=== PATIENT | female | born 2000 | race American Indian/Alaskan Native ===

== ENCOUNTER 2020-08-26 15:19 | Inpatient (IN) | payer MEDICAID ==
--- NOTE | 2020-08-26 21:44 | Ultrasound Report ---
ULTRASOUND OBSTETRIC LIMITED ULTRASOUND BIOPHYSICAL PROFILE INDICATION / CLINICAL INFORMATION: well being. Clinical Gestational Age (GA): 40.2 weeks.days COMPARISON: None available. FINDINGS: BREATHING MOVEMENT = 2 GROSS BODY MOVEMENT = 2 TONE = 2 QUALITATIVE AMNIOTIC FLUID VOLUME = 2 TOTAL BIOPHYSICAL SCORE = 8/8 HEART RATE (beats per minute): 145 AMNIOTIC FLUID INDEX (cm) = 9.8 (normal = 7-24 cm) PRESENTATION: Cephalic. ADDITIONAL FINDINGS: None. IMPRESSION: 1. Biophysical Score = 8/8 Signer Name: José Hadley MD Signed: 08/26/2020 9:43 PM Workstation Name: [id number]
[2020-08-26] MEDS ORDERED: LIDOCAINE (2%) 20 MG/1 ML VIAL 20 ML MDV INFILTRATI ONE (22:10)
[2020-08-26] MEDS ORDERED: ONDANSETRON 4 MG/2 ML INJ IV PRN (22:10)
[2020-08-26] MEDS ORDERED: AMPICILLIN/NS 2 GM/100 ML 2 GM/100 ML BAG IV ONE (22:10)
[2020-08-26] MEDS ORDERED: MINERAL OIL 30 ML ORAL LIQD PO PRN (22:10)
[2020-08-26] MEDS ORDERED: TERBUTALINE 1 MG/1 ML INJ SUB-Q PRN (22:10)
[2020-08-26] MEDS ORDERED: ePHEDrine SULFATE 50 MG/1 ML INJ IV PRN (22:10)
[2020-08-26] MEDS ORDERED: LACTATED RINGERS 1,000 ML ONE (22:15)
[2020-08-26 22:42] LABS: Hematocrit 37.3 % (30.3-42.9); Hemoglobin 12.7 gm/dl (10.1-14.3); Mean Corpuscular HGB Conc 34 % (30-34); Mean Corpuscular Volume 87 fl (79-97); Platelet Count 331 K/mm3 (140-440); Red Blood Count 4.31 M/mm3 (3.65-5.03); Red Cell Distribution Width 13.6 % (13.2-15.2)
[2020-08-26] MEDS ORDERED: D5W/LACTATED RINGERS 1,000 ML IV SCH (23:00)
[2020-08-26] MEDS ORDERED: OXYTOCIN DRIP 30 UNITS/500 ML BAG IV SCH (23:00)
[2020-08-26] MEDS ORDERED: LACTATED RINGERS 1,000 ML IV SCH (23:00)
--- NOTE | 2020-08-26 23:00 | History and Physical Report ---
History of Present Illness Date of examination: 08/26/20 Date of admission: 08/26/2020 Chief complaint: Non-reactive nonstress test History of present illness: Old at 40+2 weeks who was sent to labor and delivery triage secondary to having a nonreactive NST in the office. The patient underwent biophysical profile with a score of 8 out of 8 however the nonstress test in triage continue to demonstrate minimal variability but no evidence of late decelerations. The decision was made to keep the patient for augmentation of labor Past History Past Medical History: asthma Past Surgical History: no surgical history Social history: single - Obstetrical History Expected Date of Delivery: 08/24/20 Actual Gestation: 40 Week(s) 2 Day(s) : 1 Para: 0 Hx # Term Pregnancies: 0 Number of Pregnancies: 0 Spontaneous Abortions: 0 Induced : 0 Number of Living Children: 0 Medications and Allergies Allergies Allergy/AdvReac Type Severity Reaction Status Date / Time No Known Allergies Allergy Unverified 08/26/20 16:22 Active Meds: Active Medications Dinoprostone (Cervidil) 10 mg VG ONCE ONE Stop: 08/26/20 22:11 Ephedrine Sulfate (Ephedrine Sulfate) 10 mg IV Q2M PRN PRN Reason: Hypotension Fentanyl (Sublimaze) 100 mcg IV Q2H PRN PRN Reason: Pain,Severe (7-10) LABOR PAIN Lactated Ringer's (Lactated Ringers) 1,000 mls @ 125 mls/hr IV DIRECT ROEL Oxytocin/Sodium Chloride (Pitocin/Ns 30 Unit/500ml) 30 units in 500 mls @ 40 m ls/hr IV TITR ROEL; Protocol Ampicillin Sodium (Ampicillin/Ns 2 Gm/100 Ml) 2 gm in 100 mls @ 100 mls/hr IV ONCE ONE; Protocol Stop: 08/26/20 23:09 Lidocaine (Xylocaine 2%) 20 ml INFILTRATI ONCE ONE Stop: 08/26/20 22:11 Mineral Oil (Mineral Oil) 30 ml PO QHS PRN PRN Reason: Constipation Ondansetron HCl (Zofran) 4 mg IV Q8H PRN PRN Reason: Nausea And Vomiting Terbutaline Sulfate (Brethine) 0.25 mg SUB-Q ONCE PRN PRN Reason: Hyperstimulation/Hypertonicity Review of Systems All systems: negative Genitourinary: no leakage of fluid - Vital Signs Vital signs: Vital Signs Pulse Pulse Ox 90 98 08/26/20 16:22 08/26/20 16:22 Temp Pulse Resp BP Pulse Ox 98.3 F 92 H 20 114/76 100 08/26/20 16:23 08/26/20 21:45 08/26/20 16:23 08/26/20 16:23 08/26/20 21:45 - Physical Exam Breasts: Positive: deferred Cardiovascular: Regular rate Lungs: Positive: Clear to auscultation Abdomen: Positive: normal appearance Results Result Diagrams: 08/26/20 22:25 All other labs normal. Assessment and Plan - Patient Problems (1) Non-reactive NST (non-stress test) Current Visit: Yes Status: Acute Plan to address problem: Admit to labor and delivery for augmentation of labor
[2020-08-27] MEDS ORDERED: LACTATED RINGERS 1,000 ML ONE ×2 (01:24→12:44)
[2020-08-27] MEDS ORDERED: DINOPROSTONE 10 MG VAG SUPP VG ONE (02:15)
[2020-08-27] MEDS: fentaNYL 100 MCG/2 ML INJ IV PRN ×2 (05:33→08:57)
[2020-08-27] MEDS ORDERED: BUTORPHANOL 2 MG/1 ML INJ IV PRN (08:00)
--- NOTE | 2020-08-27 08:41 | Progress Note ---
Assessment and Plan A: 20 yo at 40w3d EGA Non-reassuring testing Maternal status reassuring P: Cook catheter placed, each balloon inflated with 60cc sterile water Pain management as requested Anticipate Subjective - Subjective Date of service: 08/27/20 Principal diagnosis: IUP at term, non-reassuring testing Interval history: Pt is 6 hours into IOL for non-reassuring testing. Cervidil placed at 0238 today, SVE remains 1cm. Pt now reports regular contractions. Patient reports: movement normal, contractions, no loss of fluid, no vaginal bleeding Objective - Vital Signs Vital Signs: Vital Signs - 12hr 08/26/20 08/26/20 08/26/20 20:40 20:45 20:50 Temperature Pulse Rate 83 95 H 93 H Respiratory Rate O2 Sat by Pulse 100 99 100 Oximetry 08/26/20 08/26/20 08/26/20 20:55 21:00 21:05 Temperature Pulse Rate 99 H 88 95 H Respiratory Rate O2 Sat by Pulse 100 100 100 Oximetry 08/26/20 08/26/20 08/26/20 21:10 21:15 21:20 Temperature Pulse Rate 102 H 100 H 96 H Respiratory Rate O2 Sat by Pulse 100 100 100 Oximetry 08/26/20 08/26/20 08/26/20 21:25 21:30 21:35 Temperature Pulse Rate 91 H 102 H 102 H Respiratory Rate O2 Sat by Pulse 100 99 99 Oximetry 08/26/20 08/26/20 08/27/20 21:40 21:45 02:50 Temperature Pulse Rate 95 H 92 H 102 H Respiratory Rate O2 Sat by Pulse 100 100 97 Oximetry 08/27/20 08/27/20 08/27/20 02:55 03:00 03:05 Temperature Pulse Rate 93 H 101 H 102 H Respiratory Rate O2 Sat by Pulse 97 97 97 Oximetry 08/27/20 08/27/20 08/27/20 03:10 03:15 03:20 Temperature Pulse Rate 88 100 H 93 H Respiratory Rate O2 Sat by Pulse 97 97 97 Oximetry 08/27/20 08/27/20 08/27/20 03:25 03:30 03:35 Temperature Pulse Rate 102 H 86 84 Respiratory Rate O2 Sat by Pulse 97 97 96 Oximetry 08/27/20 08/27/20 08/27/20 03:40 03:45 03:50 Temperature Pulse Rate 89 89 88 Respiratory Rate O2 Sat by Pulse 97 98 98 Oximetry 08/27/20 08/27/20 08/27/20 03:55 04:00 04:05 Temperature Pulse Rate 98 H 91 H 96 H Respiratory Rate O2 Sat by Pulse 98 96 98 Oximetry 08/27/20 08/27/20 08/27/20 04:10 04:15 04:20 Temperature Pulse Rate 92 H 95 H 106 H Respiratory Rate O2 Sat by Pulse 98 98 99 Oximetry 08/27/20 08/27/20 08/27/20 04:25 04:32 04:37 Temperature Pulse Rate 92 H 114 H 83 Respiratory Rate O2 Sat by Pulse 97 98 98 Oximetry 08/27/20 08/27/20 08/27/20 04:38 04:42 04:44 Temperature Pulse Rate 86 85 90 Respiratory Rate O2 Sat by Pulse 94 97 94 Oximetry 08/27/20 08/27/20 08/27/20 04:47 04:51 04:52 Temperature Pulse Rate 86 90 98 H Respiratory Rate O2 Sat by Pulse 97 91 97 Oximetry 08/27/20 08/27/20 08/27/20 04:57 05:02 05:04 Temperature Pulse Rate 92 H 90 87 Respiratory Rate O2 Sat by Pulse 97 98 94 Oximetry 08/27/20 08/27/20 08/27/20 05:07 05:11 05:12 Temperature Pulse Rate 86 92 H 100 H Respiratory Rate O2 Sat by Pulse 97 92 98 Oximetry 08/27/20 08/27/20 08/27/20 05:17 05:22 05:29 Temperature Pulse Rate 104 H 90 102 H Respiratory Rate O2 Sat by Pulse 98 99 98 Oximetry 08/27/20 08/27/20 08/27/20 05:33 05:34 05:39 Temperature Pulse Rate 92 H 94 H Respiratory 16 Rate O2 Sat by Pulse 96 95 Oximetry 08/27/20 08/27/20 08/27/20 05:40 05:44 05:48 Temperature Pulse Rate 94 H 95 H 90 Respiratory Rate O2 Sat by Pulse 93 95 93 Oximetry 20 08/27/20 08/27/20 05:49 05:54 05:56 Temperature Pulse Rate 92 H 91 H 93 H Respiratory Rate O2 Sat by Pulse 95 95 94 Oximetry 08/27/20 08/27/20 11/18/20 05:59 06:00 06:04 Temperature 98.4 F Pulse Rate 90 88 Respiratory 18 Rate O2 Sat by Pulse 96 96 Oximetry 1820 20 08/27/20 06:07 06:09 06:14 Temperature Pulse Rate 90 88 87 Respiratory Rate O2 Sat by Pulse 92 95 95 Oximetry 18/20 1820 20 06:19 06:20 06:24 Temperature Pulse Rate 89 88 86 Respiratory Rate O2 Sat by Pulse 94 94 96 Oximetry 18/20 18/20 08/27/20 06:29 06:30 06:34 Temperature Pulse Rate 87 89 94 H Respiratory Rate O2 Sat by Pulse 94 93 95 Oximetry 18/20 08/27/20 08/27/20 06:37 06:39 06:44 Temperature Pulse Rate 100 H 92 H 93 H Respiratory Rate O2 Sat by Pulse 94 98 97 Oximetry 20 20 08/27/20 06:48 06:49 06:54 Temperature Pulse Rate 102 H 98 H 95 H Respiratory Rate O2 Sat by Pulse 90 96 96 Oximetry 20 20 08/27/20 06:58 06:59 07:08 Temperature Pulse Rate 108 H 105 H 101 H Respiratory Rate O2 Sat by Pulse 90 99 99 Oximetry 18/20 20 08/27/20 07:13 07:18 07:23 Temperature Pulse Rate 87 86 91 H Respiratory Rate O2 Sat by Pulse 97 98 98 Oximetry 18/20 20 08/27/20 07:28 07:33 07:38 Temperature Pulse Rate 98 H 104 H 110 H Respiratory Rate O2 Sat by Pulse 97 98 98 Oximetry 18/20 08/27/20 08/27/20 07:43 07:50 07:55 Temperature Pulse Rate 103 H 109 H 93 H Respiratory Rate O2 Sat by Pulse 98 99 98 Oximetry 18/20 18/20 08/27/20 07:58 08:00 08:05 Temperature Pulse Rate 100 H 94 H 95 H Respiratory Rate O2 Sat by Pulse 94 96 96 Oximetry 18/20 08/27/20 08/27/20 08:06 08:10 08:11 Temperature Pulse Rate 102 H 96 H 104 H Respiratory Rate O2 Sat by Pulse 94 96 92 Oximetry 08/27/20 08/27/20 08/27/20 08:15 08:20 08:25 Temperature Pulse Rate 111 H 110 H 112 H Respiratory Rate O2 Sat by Pulse 98 98 98 Oximetry 08/27/20 08/27/20 08:30 08:35 Temperature Pulse Rate 98 H 109 H Respiratory Rate O2 Sat by Pulse 96 96 Oximetry - Exam Lungs: Normal air movement Abdomen: Present: soft. Absent: distention Uterus: Present: firm FHR: category 1 Uterine Contraction Monitor Mode: External Cervical Dilatation: 1 Uterine Contraction Frequency (min): 2-3 Uterine Contraction Duration: 60 Uterine Contraction Pattern: Regular Uterine Tone Measurement Phase: Contraction Uterine Contraction Intensity: Strong/Firm - Labs Labs: Laboratory Results - last 24 hr 08/26/20 08/26/20 08/26/20 22:25 22:25 22:25 WBC 10.9 RBC 4.31 Hgb 12.7 Hct 37.3 MCV 87 MCH 29 MCHC 34 RDW 13.6 Plt Count 331 Syphilis IgG Antibody Nonreactive Blood Type A POSITIVE Antibody Screen Negative
[2020-08-27] MEDS ORDERED: AMPICILLIN/NS 2 GM/100 ML 2 GM/100 ML BAG IV ONE (10:00)
[2020-08-27] MEDS ORDERED: LACTATED RINGERS 1,000 ML IV SCH ×2 (13:00→22:00)
--- NOTE | 2020-08-27 13:01 | Event Note ---
Date: 08/27/20 Cooks catheter removed with gentle traction, SVE: 4/30/-2. AROM with thin meconium, FHTs decel to 60 bpm for <1 min, return to baseline. Rapid dilation, SVE: 6/50/-2. Closely monitor, ampicillin infusing. Anticipate .
[2020-08-27] MEDS ORDERED: ONDANSETRON 4 MG/2 ML INJ IV PRN (14:11)
[2020-08-27] MEDS ORDERED: NALOXONE 2 MG/2 ML INJ IV PRN (14:11)
[2020-08-27] MEDS ORDERED: NalbUPHINE 10 MG/1 ML INJ IV PRN (14:11)
[2020-08-27] MEDS ORDERED: diphenhydrAMINE 50 MG/ML VIAL IV PRN (14:11)
--- NOTE | 2020-08-27 14:14 | Anesthesia Consultation ---
Anesthesia Consult and Med Hx Date of service: 08/27/20 - Airway Anesthetic Teeth Evaluation: Good ROM Head & Neck: Adequate Mental/Hyoid Distance: Adequate Mallampati Class: Class I Intubation Access Assessment: Good - Pulmonary Exam CTA: Yes - Cardiac Exam Cardiac Exam: RRR - Pre-Operative Health Status ASA Pre-Surgery Classification: ASA2 Proposed Anesthetic Plan: Epidural - Pulmonary Hx Smoking: No Hx Asthma: Yes (last attack as a child) Hx Sleep Apnea: No - Cardiovascular System Hx Hypertension: No Hx Heart Attack/AMI: No - Central Nervous System Hx Seizures: No Hx Psychiatric Problems: No - Gastrointestinal Hx Gastroesophageal Reflux Disease: No - Endocrine Hx Renal Disease: No Hx Hypothyroidism: No Hx Hyperthyroidism: No - Hematic Hx Anemia: Yes Hx Sickle Cell Disease: No - Other Systems Hx Alcohol Use: No
--- NOTE | 2020-08-27 14:16 | Progress Note ---
Labor Epidural - Labor Epidural Start Time: 13:50 Stop Time: 14:05 Performed by:: CAMERON FULTON Procedure: Patient is requesting a laboring epidural for laboring pain. Patient IDed, H&P reviewed, all questions and concerns were answered, and consent was signed. Timeout was performed at bedside. Patient in sitting position. Sterile prep and drape was performed. 3ml of 1% lidocaine skin wheal at L[3]- L [4]. 18- gauge Touhy epidural needle was advanced to loss of resistance with air technique. Positive CSF negative blood. Intrathecal catheter advanced to [8] centimeters. [+] Aspiration [+] test dose. Sterile dressing applied. Patient tolerated procedure. Nurse and patient notified of wet tap, and given further instructions regarding dosing of the intrathecal catheter
[2020-08-27] MEDS ORDERED: fentaNYL-BUPIV 2 MCG/ML-0.125% 200 MCG/100 ML BAG EPIDURAL SCH (15:00)
[2020-08-27] MEDS ORDERED: AMPICILLIN/NS 1 GM/50 ML 1 GM/50 ML BAG IV SCH (16:40)
[2020-08-27] MEDS ORDERED: FAMOTIDINE 20 MG/2 ML INJ IV ONE (21:21)
[2020-08-27] MEDS ORDERED: BICITRA ORAL LIQD 30ML PO ONE (21:21)
[2020-08-27] MEDS ORDERED: METOCLOPRAMIDE 10 MG/2 ML INJ IV ONE (21:21)
[2020-08-27] MEDS ORDERED: ceFAZolin/Water 2 GM/20 ML 2 GM/20 ML SYRINGE IV NR (22:00)
[2020-08-27] MEDS ORDERED: OXYTOCIN DRIP 30 UNITS/500 ML BAG IV SCH (22:00)
[2020-08-27] MEDS ORDERED: KETOROLAC 30 MG/1 ML INJ ONE (22:17)
[2020-08-27] MEDS ORDERED: ONDANSETRON 4 MG/2 ML INJ ONE (22:17)
[2020-08-27] MEDS ORDERED: OXYTOCIN 10 UNIT/1 ML INJ ONE (22:17)
[2020-08-27] MEDS ORDERED: BUPIVACAINE /DEX-WATER 0.75% (2 ML) AMPULE INFILTRATI ONE (22:18)
[2020-08-27] MEDS ORDERED: BUPIVACAINE/PF (0.5%) 5 MG/1 ML 30 ML VIAL INFILTRATI ONE (22:50)
[2020-08-27] MEDS ORDERED: SODIUM CHLORIDE P/F VIAL 10 ML 20 ML ONE (22:52)
--- NOTE | 2020-08-27 22:56 | Procedure Note ---
OB Delivery Note - Delivery Date of Delivery: 08/27/20 Surgeon: PITA MORA Estimated blood loss: other (700 mL) - Section Preop diagnosis: arrest of dilation Postop diagnosis: same section procedure: section, primary low transverse Disposition: PACU Complications: none Narrative: Please see operative report - A at 1 minute: 8 at 5 minutes: 9 Gender: Female (2964g (6lb 9oz) @ 2216 pm)
--- NOTE | 2020-08-27 22:58 | Operative Report ---
Operative Report Operative Report: Date of procedure: August 27, 2020 Preoperative diagnosis: 1) IUP at 40w3d 2) Arrest of Dilation 3) Ta chycardia 4) Maternal Tachycardia 5) Meconium Postoperative diagnosis: Same Procedure: Primary low transverse section Surgeon: Marina Juarez M.D. Anesthesia: Regional Findings: 1) Viable female , Apgars 8 and 9, weight 2964 g, (6 lb 9 oz) in cephalic presentation. Occiput Posterior 2) Normal-appearing uterus ovaries and tubes Estimated blood loss: 700 mL IV fluids: 1000 mL Urine output: 300 mL, clear at the end of the procedure Drains: Bustillo to gravity Specimens: Placenta to pathology Complications:None. Counts correct x 3 Disposition: Stable to PACU Indication for procedure: Pt is a 20 year old primigravida at 40w3d who was admitted for induction of labor secondary to non-reassuring status. She progressed to 6 cm arrested there for over five hours. The patient and the fetus also developed tachycardia so the decision was made to proceed with section. Operation in detail: After the risks, benefits, alternatives and complications were explained to the patient she gave informed consent for the procedure. She was subsequently taken to the operating room where regional anesthesia was noted to be adequate. She was subsequently placed in the dorsal supine position with leftward tilt and prepped and draped in a normal sterile fashion. heart tones were noted prior to incision. A timeout was performed. A Pfannenstiel skin incision was made with the knife and carried down to the layer of the fascia with the Bovie. The fascia was incised in the midline and the fascial incision was extended bilaterally with the Bovie. The fascial incision was then stretched. The rectus muscles were then in the midline and partially transected for adequate visualization. The peritoneum was then entered bluntly. The peritoneal incision was extended with good visualization of the bladder. The peritoneal incision was then stretched. An Madhu retractor was placed. The bladder blade was then placed. The vesicouterine peritoneuam was graped with smooth pick ups and incised with Metzenbaum scissors . A bladder flap was then created digitally and the bladder blade was replaced. A transverse incision was made in the lower uterine segment with a knife and extended bilaterally with the bandage scissors. head delivered with ease, followed by shoulders and body. bulb suctioned at delivery. Cord clamped and cut. handed to NICU staff in attendance.The placenta was then delivered manually. The uterus was then exteriorized and cleared of all clots and debris. The hysterotomy was then reapproximated with 0 Vicryl in a running locked fashion. A second layer of the same suture was used in imbricating fashion. The hysterotomy was inspected and hemostasis was noted. The gutters were irrigated and cleared of all clots and debris. The hysterotomy was again inspected and noted to be hemostatic. Surgicel was placed over the hysterotomy. The Madhu retractor was removed. The uterus was placed back into the peritoneal cavity. The peritoneum was reapproximated with 2-0 Vicryl in a running fashion incorporating the rectus muscles. Surgicel was placed over the rectus muscles. The fascia was reapproximated with 0 Vicryl in a running fashion. The subcutaneous tissue was reapproximated with 3-0 Vicryl in a running fashion. The skin was reapproximated with 4-0 Vicryl in a subcuticular fashion. The incision was then covered with steri strips and a pressure dressing. The procedure was then ended. The patient tolerated the procedure well and was taken to the PACU in stable condition. All instrument, lap, and needle counts were correct 3.
--- NOTE | 2020-08-27 23:25 | Progress Note ---
Regional Anesthesia Block - Regional Anesthesia Block Start Time: 23:08 Stop Time: 23:18 Performed By:: CAMERON FULTON Procedure: Patient consented for TAP block for post surgical pain management. Patient identified, monitors placed, and time out performed. Mid axillary TAP identified bilaterally via ultrasound. Skin prepped bilaterally with [chlorhexidine] and [20g stimuplex] needle advanced to the TAP. 30ml [Marcaine 0.25% with 25mcg Pre cedex and Decadron 4mg] injected under ultrasound guidance on the [left] side. 30ml [Marcaine 0.25% with 25mcg Precedex and Decadron 4mg] injected under ultrasound guidance on the [right] side.
[2020-08-28] MEDS ORDERED: HYDROmorphone 1 MG/1 ML INJ IV PRN
[2020-08-28] MEDS ORDERED: PROMETHAZINE 25 MG RECT SUPP PR PRN
[2020-08-28] MEDS ORDERED: PROMETHAZINE 25 MG TAB PO PRN
[2020-08-28] MEDS ORDERED: LANOLIN/ZINC/DIMETHICONE (LANSINOH) 7 GM TP PRN (02:00)
[2020-08-28] MEDS ORDERED: MAGNESIUM HYDROXIDE (MOM) ORAL LIQD UDC PO PRN (02:00)
[2020-08-28] MEDS ORDERED: OXYTOCIN DRIP 30 UNITS/500 ML BAG IV SCH (02:00)
[2020-08-28] MEDS ORDERED: D5W/LACTATED RINGERS 1,000 ML IV SCH (02:00)
[2020-08-28] MEDS ORDERED: MORPHINE 4 MG/1 ML INJ IV PRN (02:00)
[2020-08-28] MEDS ORDERED: IBUPROFEN 600 MG TAB PO PRN (02:00)
[2020-08-28] MEDS ORDERED: MORPHINE 2 MG/1 ML INJ IV PRN (02:00)
[2020-08-28] MEDS ORDERED: SIMETHICONE 80 MG CHEW TAB PO PRN (02:00)
[2020-08-28] MEDS ORDERED: NALOXONE 0.4 MG/1 ML INJ IV PRN ×2 (02:00)
[2020-08-28] MEDS ORDERED: WITCH HAZEL/ GLYCERIN PAD TP PRN (02:00)
[2020-08-28] MEDS ORDERED: ACETAMINOPHEN 325 MG TAB PO PRN (02:00)
[2020-08-28] MEDS: KETOROLAC 30 MG/1 ML INJ IV SCH ×2 (04:16→12:50)
[2020-08-28] MEDS: ceFAZolin/NS 1 GM/50 ML 1 GM/50 ML BAG IV SCH ×2 (05:30→14:01)
[2020-08-28] MEDS: oxyCODONE /ACETAMINOPHEN 5-325MG TAB PO PRN ×2 (05:32→14:54)
--- NOTE | 2020-08-28 08:43 | Progress Note ---
Assessment and Plan A: POD1 from pLTCS EBL 700 Breast and bottle feeding Pain well controlled Labs stable P: Hand expression demonstrated, BF ed reviewed consult requested Subjective - Subjective Date of service: 08/28/20 Principal diagnosis: S/p pLTCS Interval history: S/p LTCS d/t tachycardia and arrest of descent Patient reports: appetite normal, voiding normally, pain well controlled, flatus, no bowel movement [place]: doing well, nursing well, bottle feeding (bottle and breast ) Objective - Vital Signs Latest vital signs: Vital Signs Temp Pulse Resp BP BP Pulse Ox 08/28/20 01:39 18 08/28/20 00:55 98.0 F 75 18 113/86 99 08/28/20 00:05 91 H 14 125/77 96 08/27/20 23:50 80 16 141/92 97 08/27/20 23:35 77 20 140/91 97 08/27/20 23:20 88 18 139/82 97 08/27/20 23:15 81 13 134/72 99 08/27/20 23:10 96 H 17 140/80 98 08/27/20 23:05 98.8 F 107 H 17 125/81 98 08/27/20 21:32 128 H 100 08/27/20 21:27 121 H 100 08/27/20 21:22 109 H 100 08/27/20 21:17 121 H 99 08/27/20 21:12 119 H 100 08/27/20 21:07 113 H 100 08/27/20 21:06 122 H 119/74 08/27/20 21:02 115 H 100 08/27/20 20:58 100.7 F H 120 H 20 119/74 100 18 20:57 119 H 100 20 20:55 114 H 93 1820 20:52 123 H 100 08/27/20 20:47 126 H 100 18 20:42 116 H 100 08/27/20 20:37 100 H 115/72 08/27/20 17:18 105 H 99 08/27/20 17:13 94 H 99 08/27/20 17:08 100 H 99 08/27/20 17:06 102 H 110/66 08/27/20 17:03 104 H 99 08/27/20 16:58 112 H 98 11/18/20 16:53 96 H 98 11/18/20 16:48 105 H 99 11/18/20 16:43 111 H 100 11/18/20 16:38 102 H 98 11/18/20 16:33 99 H 98 18/20 16:28 88 117/68 97 /18/20 16:23 97 H 97 18/20 16:18 97 H 98 18/20 16:13 82 113/72 97 18/20 16:08 86 98 18/20 16:03 86 98 /18/20 15:58 77 97 /18/20 15:57 85 115/70 /18/20 15:53 85 98 11/18/20 15:48 83 98 /18/20 15:43 93 H 115/71 98 /18/20 15:38 84 98 18/20 15:33 84 97 /18/20 15:28 84 121/70 98 18/20 15:23 94 H 98 18/20 15:18 89 98 18/20 15:13 101 H 98 18/20 15:12 101 H 122/77 18/20 15:08 97 H 98 18/20 15:05 90 122/73 18/20 15:03 98 H 121/72 97 18/20 14:58 84 98 18/20 14:56 78 121/75 18/20 14:53 80 97 18/20 14:50 89 111/70 18/20 14:48 78 99 18/20 14:45 91 H 116/73 18/20 14:43 77 98 18/20 14:42 82 116/69 /18/20 14:38 82 99 /18/20 14:35 86 118/70 /18/20 14:33 82 99 /18/20 14:31 88 122/73 11/18/20 14:28 102 H 100 18/20 14:25 98 H 117/72 /18/20 14:23 85 99 /18/20 14:20 90 117/67 18/20 14:18 86 99 18/20 14:16 99 H 126/77 18/20 14:13 84 99 11/18/20 14:10 91 H 117/69 11/18/20 14:08 96 H 123/71 98 11/18/20 14:06 103 H 120/72 1118/20 14:04 109 H 117/70 11/18/20 14:03 101 H 98 18/20 14:02 99 H 119/76 11/18/20 13:58 101 H 98 18/20 13:53 107 H 98 18/20 13:48 119 H 96 18/20 13:44 103 H 94 18/20 13:43 91 H 95 /18/20 13:38 95 H 97 18/20 13:33 104 H 98 /18/20 13:32 97 H 93 18/20 13:28 99 H 96 18/20 13:27 102 H 94 18/20 13:23 100 H 97 /18/20 13:18 105 H 98 18/20 13:13 108 H 97 18/20 13:08 107 H 92 18/20 13:07 107 H 94 18/20 13:03 98 H 95 18/20 13:02 99 H 93 18/20 12:58 101 H 94 18/20 12:57 107 H 94 18/20 12:53 101 H 95 18/20 12:50 106 H 94 18/20 12:48 108 H 95 /18/20 12:46 114 H 122/76 /18/20 12:43 124 H 96 18/20 12:38 106 H 97 18/20 12:33 108 H 97 18/20 12:28 117 H 96 18/20 12:23 116 H 97 /18/20 12:22 97 H 93 18/20 12:18 100 H 97 /18/20 12:13 102 H 97 18/20 12:09 96 H 94 18/20 12:08 94 H 95 18/20 12:03 95 H 97 /18/20 12:00 97.6 F 20 18/20 11:59 89 93 /18/20 11:58 90 94 /18/20 11:53 100 H 95 11/18/20 11:48 89 96 11/18/20 11:46 91 H 93 11/18/20 11:43 85 96 11/18/20 11:39 92 H 94 11/18/20 11:38 99 H 94 11/18/20 11:34 95 H 94 11/18/20 11:33 91 H 94 11/18/20 11:29 94 H 94 11/18/20 11:28 88 95 11/18/20 11:23 94 H 94 11/18/20 11:19 99 H 92 11/18/20 11:18 94 H 96 11/18/20 11:14 96 H 94 11/18/20 11:13 89 95 11/18/20 11:08 101 H 97 11/18/20 11:05 99 H 112/56 11/18/20 11:03 100 H 97 11/18/20 10:59 103 H 94 11/18/20 10:58 98 H 96 11/18/20 10:53 107 H 98 11/18/20 10:40 100 H 99 11/18/20 10:37 112 H 93 11/18/20 10:35 95 H 97 11/18/20 10:30 104 H 97 11/18/20 10:29 91 H 92 11/18/20 10:25 107 H 97 11/18/20 10:20 109 H 98 11/18/20 10:19 89 94 11/18/20 10:15 110 H 97 11/18/20 10:10 92 H 99 11/18/20 10:05 90 97 11/18/20 10:00 109 H 96 11/18/20 09:55 96 H 99 11/18/20 09:50 104 H 96 11/18/20 09:45 91 H 98 11/18/20 09:41 96 H 92 11/18/20 09:40 97 H 95 11/18/20 09:35 89 95 11/18/20 09:32 96 H 92 11/18/20 09:30 96 H 99 11/18/20 09:25 95 H 97 11/18/20 09:20 89 97 11/18/20 09:18 94 H 92 11/18/20 09:15 101 H 95 11/18/20 09:10 97 H 95 11/18/20 09:08 99 H 91 11/18/20 09:05 104 H 96 08/27/20 09:00 98.0 F 100 H 18 94 08/27/20 08:59 104 H 119/77 08/27/20 08:55 110 H 95 08/27/20 08:52 114 H 94 08/27/20 08:50 133 H 96 08/27/20 08:47 104 H 93 08/27/20 08:45 104 H 96 Intake and Output 08/27/20 08/28/20 08/28/20 23:59 07:59 15:59 Intake Total 609.166 240 Output Total 900 1400 Balance -290.834 -1160 Intake: IV 609.166 PITOCin/NS 30 UNIT/500ML 9.166 30 units In 500 ml @ 40 mls/hr IV TITR ROEL Rx#: [id number] Oral 240 Output: Urine 900 1400 Indwelling Catheter 900 1400 Other: Total, Intake Amount 240 Total, Output Amount 900 1400 Voiding Method Indwelling Catheter Estimated Blood Loss 700 - Exam Breasts: Present: normal Lungs: Present: Normal air movement Abdomen: Present: normal appearance, soft. Absent: distention, tenderness Uterus: Present: normal, firm, fundal height at umbilicus. Absent: bogginess, tenderness Extremities: Present: normal Incision: Present: dressed
--- NOTE | 2020-08-28 11:00 | Post Anesthesia Evaluation ---
- Post Anesthesia Evaluation Patient Participated: Yes Airway Patent: Yes Stable Respiratory Function: Yes Nausea/Vomiting: No Temp > 96.8F: Yes Pain Manageable: Yes Adequeate Hydration: Yes Anesthesia Complications: No Block Receding Appropriately: Yes Patient on Ventilator: No
[2020-08-28 11:06] LABS: Hematocrit 34.5 % (30.3-42.9); Hemoglobin 11.6 gm/dl (10.1-14.3)
[2020-08-28] MEDS: IBUPROFEN 800 MG TAB PO PRN (22:35)
[2020-08-29] MEDS: oxyCODONE /ACETAMINOPHEN 5-325MG TAB PO PRN ×3 (01:00→14:24)
[2020-08-29] MEDS ORDERED: DIPHtheria,PERTUSSIS(ACELL),TETANUS VACCINE/PF 0.5 ML VIAL IM ONE (06:00)
[2020-08-29] MEDS ORDERED: MEASLES, MUMPS & RUBELLA 12,500 UNIT/0.5 ML VACCINE SUB-Q ONE (06:00)
[2020-08-29] MEDS: IBUPROFEN 800 MG TAB PO PRN ×3 (07:35→23:55)
--- NOTE | 2020-08-29 08:06 | Progress Note ---
Assessment and Plan A: POD# 2 s/p primary at term P: Routine advances Anticipate discharge tomorrow Subjective - Subjective Date of service: 08/29/20 Principal diagnosis: S/p pLTCS Interval history: Pt without complaints. Patient reports: appetite normal, voiding normally, pain well controlled, flatus, ambulating normally, no bowel movement [place]: doing well Objective - Vital Signs Latest vital signs: Vital Signs Temp Pulse Resp BP Pulse Ox 08/29/20 01:08 97.4 F L 65 18 106/70 98 08/28/20 16:31 97.9 F 75 20 119/71 95 08/28/20 14:54 20 08/28/20 12:09 97.7 F 72 16 108/68 97 Intake and Output 08/28/20 08/29/20 08/29/20 22:59 06:59 14:59 Intake Total 360 240 Output Total 850 Balance -490 240 Intake: Oral 360 240 Output: Urine 850 Void 850 Other: Total, Intake Amount 240 240 Total, Output Amount 500 # Voids Void 1 - Exam Breasts: Present: deferred Abdomen: Present: soft Uterus: Present: fundal height at umbilicus Extremities: Present: edema (trace) Incision: Present: dressed
[2020-08-29] MEDS: MAGNESIUM HYDROXIDE (MOM) ORAL LIQD UDC PO SCH ×3 (11:06→23:55)
[2020-08-30] MEDS: MAGNESIUM HYDROXIDE (MOM) ORAL LIQD UDC PO SCH (06:08)
[2020-08-30] MEDS: IBUPROFEN 800 MG TAB PO PRN ×2 (06:09→14:15)
--- NOTE | 2020-08-30 10:41 | Discharge Summary ---
Providers - Providers Date of Admission: 08/27/20 00:00 Date of discharge: 08/30/20 Attending physician: PITA MORA 08/28/20 02:00 Consult to Enrollment Management Manager [CONS] Routine Reason For Exam: Primary care physician: PITA MORA Hospitalization Reason for admission: section, induction of labor Delivery: Procedure: primary low transverse Incision: normal, dry, intact complications: none Discharge diagnosis: IUP at term delivered [place] baby: female Condition at discharge: Good Disposition: DC-01 TO HOME OR SELFCARE Plan - Discharge Medications Prescriptions: Ibuprofen [Motrin] 600 mg PO Q6H PRN #60 tablet PRN Reason: Pain oxyCODONE /ACETAMINOPHEN [Percocet 5/325] 1 tab PO Q6HR PRN #30 tablet PRN Reason: Pain - Provider Discharge Summary Activity: routine, no sex for 6 weeks, no heavy lifting 4 weeks, no strenuous ex ercise Diet: routine Instructions: routine Additional instructions: [] Smoking cessation referral if applicable(refer to patient education folder for contact #) [] Refer to [facility]'s [facility] Booklet Call your doctor immediately for: * Fever > 100.5 * Heavy vaginal bleeding ( >1 pad per hour) * Severe persistent headache * Shortness of breath * Reddened, hot, painful area to leg or breast * Drainage or odor from incision. * Keep incision clean and dry at all times and follow doctor's instructions regarding bathing/showering - Follow up plan Follow up: PITA MORA MD [Primary Care Provider] - 14 Days Forms: [facility] Discharge Summary
[2020-08-30] MEDS: oxyCODONE /ACETAMINOPHEN 5-325MG TAB PO PRN (14:50)
[2020-08-30 15:05] VITALS: BP 108/68
== END 2020-08-30 16:00 | disposition home or self-care (01) | DRG 766 ==
LOC: TRG 15:19 → APU 15:21 → TRG 08-27 → LD 08-27 → OB 08-28 00:52
PROVIDERS: ADMIT Obstetrics & Gynecology; ATTEND Obstetrics & Gynecology
PROC: 10D00Z1 Extraction of Products of Conception, Low, Open Approach (ICD-10-PCS; principal; 2020-08-27)
PROC: 3E0234Z Introduction of Serum, Toxoid and Vaccine into Muscle, Percutaneous Approach (ICD-10-PCS; 2020-08-29)
DX: O76 Abnormality in fetal heart rate and rhythm complicating labor and delivery (principal); O77.0 Labor and delivery complicated by meconium in amniotic fluid; Z37.0 Single live birth; Z20.828 Contact with and (suspected) exposure to other viral communicable diseases; Z23 Encounter for immunization; O99.824 Streptococcus B carrier state complicating childbirth; O62.2 Other uterine inertia; O99.02 Anemia complicating childbirth; D64.9 Anemia, unspecified; Z3A.40 40 weeks gestation of pregnancy
CPT/HCPCS: 36415; 59200; 76815; 76819; 85014; 85018; 85027; 86592; 86850; 86900; 86901; 88307; G0378; J0290; J0595; J0690; J1170; J1885; J2405; J2590; J2765; J3010; J7120; J7121; U0003